=== PATIENT | female | born 1965 | race Hispanic/Latino ===

== ENCOUNTER 2023-12-16 08:11 | Day surgery (SDC) | payer OTHER ==
[~2023-12-16] VITALS: Ht 144.8 cm; Wt 76.2 kg
[~2023-12-16 08:11] MED LIST: BL ASPIRIN325 MG PO; IBUPROFEN200 MG PO
[2023-12-16] MEDS ORDERED: LACTATED RINGER'S 1,000 ML IV ONE (09:00)
[2023-12-16] MEDS ORDERED: FAMOTIDINE 10MG/ML 2ML SDV IV ONE (09:00)
[2023-12-16 10:23] VITALS: BP 110/73
[2023-12-16] MEDS ORDERED: PROPOFOL 200 MG/20 ML VIAL IV ONE (14:39)
[2023-12-16] MEDS ORDERED: LIDOCAINE HCL 2% 2ML SDV IV ONE (14:39)
[2023-12-16] MEDS ORDERED: GLYCOPYRROLATE 0.2 MG/ML IV ONE (14:39)
== END 2023-12-16 10:38 | disposition home or self-care (01) | DRG 951 ==
LOC: ENDO 08:11
PROVIDERS: ATTEND Internal Medicine Gastroenterology
PROC: 0DJD8ZZ Inspection of Lower Intestinal Tract, Via Natural or Artificial Opening Endoscopic (ICD-10-PCS; principal; 2023-12-16)
DX: Z12.11 Encounter for screening for malignant neoplasm of colon (principal); K64.8 Other hemorrhoids; K76.0 Fatty (change of) liver, not elsewhere classified